=== PATIENT | female | born 1990 | race Hispanic/Latino ===

== ENCOUNTER 2018-10-14 10:26 | Outpatient (CLI) | payer MEDICAID ==
--- NOTE | 2018-10-14 11:43 | ULT ---
ULTRASOUND PELVIC DOPPLER DUPLEX: DATE: 10/14/2018 HISTORY: 28-year-old female with pelvic pain TECHNIQUE: Transabdominal transducer used to visualize intrapelvic contents with grayscale, color-flow, and spec tral analysis. FINDINGS: Uterus: 8.5 x 6.5 x 5 cm. Endometrial stripe: 1.5 cm (15 mm). No moderate sized or large uterine leiomyomata. Right ovary: 2.5 x 1.5 x 1.5 cm. Left ovary: 4 x 2 x 1.5 cm. No ovarian cyst visualized. Blood flow demonstrated in both ovaries by Doppler. No free fluid in the cul-de-sac. IMPRESSION: Negative
== END 2018-10-14 10:27 | disposition home or self-care (01) ==
LOC: BICULT 10:26
PROVIDERS: ATTEND Advanced Practice Midwife
DX: R10.2 Pelvic and perineal pain (principal)
CPT/HCPCS: 76856